=== PATIENT | female | born 1980 | race Caucasian/White ===

== ENCOUNTER 2017-07-15 11:50 | Emergency (ER) | payer OTHER ==
[2017-07-15 12:02] VITALS: BP 131/45; PULSE 89; TEMP 98.7; BMI 44.2
[2017-07-15] MEDS ORDERED: KETOROLAC TROMETHAMINE 30 MG/1 ML VIAL IM ONE (12:50)
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
[2017-07-15 13:26] LABS: HCG,QUALITATIVE URINE NEGATIVE
[2017-07-15] MEDS ORDERED: KETOROLAC TROMETHAMINE 30 MG/1 ML VIAL ONE (13:32)
[2017-07-15 13:36] LABS: URINE APPEARANCE SLCLOUDY; URINE BILIRUBIN NEGATIVE (<2.0 mg/dL); URINE BLOOD NEGATIVE (NEGATIVE); URINE COLOR YELLOW; URINE GLUCOSE (UA) NEGATIVE (NEGATIVE); URINE KETONE NEGATIVE (NEGATIVE); URINE LEUK ESTERASE NEGATIVE (NEGATIVE); URINE NITRITE POSITIVE (NEGATIVE); URINE PROTEIN NEGATIVE (NEGATIVE); URINE UROBILINOGEN NEGATIVE mg/dL (0.2-1.0)
[2017-07-15 13:46] LABS: EPI CELLS RARE /HPF (FEW); URINE BACTERIA MODERATE /hpf (NONE SEEN); URINE MUCUS FEW
== END 2017-07-15 14:30 | disposition home or self-care (01) ==
LOC: JERFT 11:50
PROC: 3E0233Z Introduction of Anti-inflammatory into Muscle, Percutaneous Approach (ICD-10-PCS; principal; 2017-07-15)
DX: S49.81XA Other specified injuries of right shoulder and upper arm, initial encounter (principal); S20.211A Contusion of right front wall of thorax, initial encounter; V44.5XXA Car driver injured in collision with heavy transport vehicle or bus in traffic accident, initial encounter; Y92.414 Local residential or business street as the place of occurrence of the external cause; Y93.89 Activity, other specified; Y99.8 Other external cause status
CPT/HCPCS: 71101-TC-RT-FY; 73030-TC-RT-FY; 81003; 81015; 84703; 99281-25

== ENCOUNTER 2019-12-24 04:51 | Emergency (ER) | payer OTHER ==
[2019-12-24] MEDS ORDERED: LACTATED RINGERS SOLUTION 1000 ML INFUS.BAG IV ONE (05:15)
[2019-12-24 05:22] VITALS: TEMP 98.9; BMI 43.4
[2019-12-24 05:44] LABS: BASO % 1.6 % (0-2.0); EOS % 6.7 % (0-4.5); HEMATOCRIT 34.9 % (32.4-45.2); HEMOGLOBIN 11.6 GM/dL (10.7-15.3); LYMPH % 31.9 % (8-40); MCH 26.5 pg (25.7-33.7); MCHC 33.2 g/dl (32.0-36.0); MEAN CELL VOLUME 79.9 fl (80-96); MEAN PLT VOLUME 8.8 fl (7.5-11.1); MONO % 8.1 % (3.8-10.2); NEUT % 51.7 % (42.8-82.8); PLATELET COUNT 228 K/MM3 (134-434); RBC 4.37 M/mm3 (3.60-5.2); RDW 16.7 % (11.6-15.6); WHITE BLOOD COUNT 5.4 K/mm3 (4.0-10.0)
[2019-12-24 06:03] LABS: CALCIUM 8.8 mg/dL (8.5-10.1)
[2019-12-24 06:04] LABS: ALBUMIN 3.1 g/dl (3.4-5.0); BLOOD UREA NITROGEN 9.2 mg/dL (7-18)
[2019-12-24 06:07] LABS: CREATININE 0.6 mg/dL (0.55-1.3)
[2019-12-24 06:09] LABS: BILIRUBIN,TOTAL 0.2 mg/dL (0.2-1); TOT PROT 6.5 g/dl (6.4-8.2)
[2019-12-24 08:59] LABS: EPI CELLS >36 /uL (0-25.1); HYALINE CASTS 1 /uL (0-3.1); URINE APPEARANCE TURBID; URINE BACTERIA 4108 /uL (0-1359); URINE BILIRUBIN NEGATIVE (NEGATIVE); URINE COLOR YELLOW; URINE GLUCOSE (UA) NEGATIVE (NEGATIVE); URINE KETONE NEGATIVE (NEGATIVE); URINE LEUK ESTERASE 2+ (NEGATIVE); URINE NITRITE NEGATIVE (NEGATIVE); URINE PROTEIN NEGATIVE (NEGATIVE); URINE RBC 60 /uL (0-23.9); URINE UROBILINOGEN 0.2 mg/dL (0.2-1.0); URINE WBC 150 /uL (0-25.8)
[2019-12-24 09:11] VITALS: BP 112/74; PULSE 75
[2019-12-24] MEDS ORDERED: CEPHALEXIN MONOHYDRATE 500 MG CAPSULE (UD) PO ONE (09:11)
[2019-12-24] MEDS ORDERED: CEPHALEXIN MONOHYDRATE 500 MG CAPSULE (UD) ONE (09:18)
== END 2019-12-24 09:27 | disposition home or self-care (01) ==
LOC: JER 04:51
DX: O26.851 Spotting complicating pregnancy, first trimester (principal); O23.41 Unspecified infection of urinary tract in pregnancy, first trimester
CPT/HCPCS: 36415; 76801-TC; 80053; 81003; 84702; 85025; 99284-25

== ENCOUNTER 2020-01-09 17:57 | Emergency (ER) | payer OTHER ==
[2020-01-09 18:09] VITALS: BMI 37.1
[2020-01-09 19:29] LABS: URINE APPEARANCE CLOUDY; URINE BILIRUBIN NEGATIVE (NEGATIVE); URINE COLOR YELLOW; URINE GLUCOSE (UA) NEGATIVE (NEGATIVE); URINE KETONE TRACE (NEGATIVE); URINE LEUK ESTERASE 2+ (NEGATIVE); URINE NITRITE NEGATIVE (NEGATIVE); URINE PROTEIN NEGATIVE (NEGATIVE); URINE UROBILINOGEN 0.2 mg/dL (0.2-1.0)
[2020-01-09 20:31] LABS: URINE WBC 404.7 /uL (0-25.8)
[2020-01-09 20:32] LABS: URINE BACTERIA 4759.8 /uL (0-1359)
[2020-01-09 20:41] VITALS: BP 110/82; PULSE 80; TEMP 98.3
== END 2020-01-09 21:21 | disposition home or self-care (01) ==
LOC: JER 17:57
DX: O26.899 Other specified pregnancy related conditions, unspecified trimester (principal); R10.84 Generalized abdominal pain; Z3A.16 16 weeks gestation of pregnancy
CPT/HCPCS: 76801-TC; 81003; 99284-25

== ENCOUNTER 2020-04-15 07:51 | Emergency (ER) | payer OTHER ==
[2020-04-15 08:08] VITALS: BMI 42.3
[2020-04-15] MEDS ORDERED: SODIUM CHLORIDE 0.9% 500 ML INFUS.BAG IV ONE (09:46)
[2020-04-15 10:26] LABS: BASO % 0.8 % (0-2.0); EOS % 7.8 % (0-4.5); HEMOGLOBIN 10.9 GM/dL (10.7-15.3); LYMPH % 23.1 % (8-40); MCH 27.6 pg (25.7-33.7); MEAN CELL VOLUME 81.4 fl (80-96); MEAN PLT VOLUME 9.4 fl (7.5-11.1); MONO % 6.8 % (3.8-10.2); NEUT % 61.5 % (42.8-82.8); PLATELET COUNT 290 K/MM3 (134-434); RBC 3.94 M/mm3 (3.60-5.2); WHITE BLOOD COUNT 7.8 K/mm3 (4.0-10.0)
[2020-04-15 10:45] VITALS: BP 117/54; PULSE 90; TEMP 98
[2020-04-15 11:00] LABS: URINE APPEARANCE Clear; URINE BILIRUBIN Negative (NEGATIVE); URINE COLOR Yellow; URINE GLUCOSE (UA) Negative (NEGATIVE); URINE KETONE Negative (NEGATIVE); URINE LEUK ESTERASE Negative (NEGATIVE); URINE NITRITE Negative (NEGATIVE); URINE PROTEIN Negative (NEGATIVE); URINE UROBILINOGEN 0.2 mg/dL (0.2-1.0)
[2020-04-15 11:03] LABS: POTASSIUM 4.3 mmol/L (3.5-5.1)
[2020-04-15 11:05] LABS: ALBUMIN 2.8 g/dl (3.4-5.0); BLOOD UREA NITROGEN 7.6 mg/dL (7-18)
[2020-04-15 11:08] LABS: CREATININE 0.6 mg/dL (0.55-1.3)
[2020-04-15 11:10] LABS: BILIRUBIN,TOTAL 0.3 mg/dL (0.2-1); TOT PROT 6.7 g/dl (6.4-8.2)
[2020-04-15 11:15] LABS: CALCIUM 9.7 mg/dL (8.5-10.1)
== END 2020-04-15 12:05 | disposition home or self-care (01) ==
LOC: JER 07:51
DX: R21 Rash and other nonspecific skin eruption (principal); Z3A.28 28 weeks gestation of pregnancy
CPT/HCPCS: 36415; 76815; 80053; 81003; 85025; 87086; 99284-25

== ENCOUNTER 2020-06-27 09:00 | Inpatient (IN) | payer OTHER ==
[2020-06-27] MEDS: ELECTROLYTE-148 SOLN 1,000 ML IV SCH (09:15)
[2020-06-27] MEDS ORDERED: AMPICILLIN SODIUM 250 MG VIAL IVPB ONE (10:30)
[2020-06-27] MEDS ORDERED: AMPICILLIN SODIUM 2 GM VIAL ONE (10:31)
[2020-06-27] MEDS ORDERED: CITRIC ACID/SODIUM CITRATE 30 ML UNIT-DOSE CUP PO ONE (10:35)
[2020-06-27 10:37] LABS: BASO % 0.6 % (0-2.0); EOS % 3.9 % (0-4.5); HEMATOCRIT 32.3 % (32.4-45.2); HEMOGLOBIN 10.9 GM/dL (10.7-15.3); LYMPH % 20.8 % (8-40); MCH 25.8 pg (25.7-33.7); MCHC 33.6 g/dl (32.0-36.0); MEAN CELL VOLUME 76.9 fl (80-96); MEAN PLT VOLUME 10.1 fl (7.5-11.1); MONO % 6.3 % (3.8-10.2); NEUT % 68.4 % (42.8-82.8); PLATELET COUNT 212 K/MM3 (134-434); RDW 16.3 % (11.6-15.6); WHITE BLOOD COUNT 7.6 K/mm3 (4.0-10.0)
[2020-06-27 10:42] LABS: INR 0.94 (0.83-1.09); PROTHROMBIN TIME (PATIENT) 11.6 SEC (9.7-13.0)
[2020-06-27 10:45] LABS: ACTIVATED PTT 26.2 SECONDS (25.2-36.5)
[2020-06-27 10:48] VITALS: BMI 43.5
[2020-06-27 10:54] LABS: CALCIUM 8.8 mg/dL (8.5-10.1)
[2020-06-27 10:55] LABS: BLOOD UREA NITROGEN 9.3 mg/dL (7-18)
[2020-06-27 10:58] LABS: CREATININE 0.6 mg/dL (0.55-1.3)
[2020-06-27] MEDS ORDERED: OXYTOCIN 20 UNITS in 0.9% NS 40 UNIT/2,000 ML INFUS.BAG IV ONE (11:14)
[2020-06-27] MEDS ORDERED: ONDANSETRON 4 MG/2 ML VIAL ONE (11:16)
[2020-06-27] MEDS ORDERED: DEXAMETHASONE SOD PHOSPHATE 4 MG/1 ML VIAL ONE (11:16)
[2020-06-27] MEDS ORDERED: morphine SULFATE/PF 0.5 MG/ML (2cc Syringe - QUVA) ONE (11:17)
[2020-06-27] MEDS ORDERED: KETOROLAC TROMETHAMINE 30 MG/1 ML VIAL ONE (12:19)
[2020-06-27] MEDS ORDERED: WITCH HAZEL 50% (TUCKS) 40 PAD/JAR PAD TP PRN (13:04)
[2020-06-27] MEDS ORDERED: BENZOCAINE 28 GM HEMORRHOIDAL OINTMENT TP PRN (13:04)
[2020-06-27] MEDS ORDERED: BENZOCAINE 20% 57 GM BOTTLE TP PRN (13:04)
[2020-06-27] MEDS ORDERED: diphenhydrAMINE HCL 25 MG CAPSULE (FP) PO PRN (13:04)
[2020-06-27] MEDS ORDERED: METHYLERGONOVINE MALEATE 0.2 MG/1 ML AMP IM PRN (13:04)
[2020-06-27] MEDS ORDERED: IBUPROFEN 800 MG/8 ML IJ IVPB PRN (13:04)
[2020-06-27 13:10] LABS: CORD HCO3 22.6 mmHg (20-29); CORD PCO2 54.9 mmHg (30-78); CORD pH 7.233 (7.14-7.44)
[2020-06-27 13:11] LABS: CORD BASE EXCESS -3.7 mmol/L (0-2); CORD HCO3 21.6 mmHg (20-29); CORD pH 7.35 (7.14-7.44)
[2020-06-27] MEDS ORDERED: OXYTOCIN 20 UNITS in 0.9% NS 20 UNIT/1,000 ML INFUS.BAG IV SCH (13:15)
[2020-06-27] MEDS ORDERED: ONDANSETRON 4 MG/2 ML VIAL IVPUSH PRN (15:07)
[2020-06-27] MEDS ORDERED: ACETAMINOPHEN 1000 MG/100 ML VIAL (NON FORMULARY) IVPB PRN (15:09)
[2020-06-27] MEDS: ACETAMINOPHEN 325 MG TABLET (FP) PO PRN (19:48)
[2020-06-28] MEDS: ACETAMINOPHEN 325 MG TABLET (FP) PO PRN ×3 (02:16→20:08)
[2020-06-28] MEDS: IBUPROFEN 600 MG TABLET (FP) PO PRN ×2 (06:00→10:30)
[2020-06-28 07:07] LABS: HEMATOCRIT 29.6 % (32.4-45.2); HEMOGLOBIN 9.7 GM/dL (10.7-15.3); MCH 25.9 pg (25.7-33.7); MCHC 32.7 g/dl (32.0-36.0); MEAN PLT VOLUME 11.2 fl (7.5-11.1); PLATELET COUNT 196 K/MM3 (134-434); RBC 3.75 M/mm3 (3.60-5.2); RDW 16.3 % (11.6-15.6); WHITE BLOOD COUNT 10.5 K/mm3 (4.0-10.0)
[2020-06-28] MEDS: SIMETHICONE 80 MG TAB.CHEW (FP) PO PRN ×2 (10:29→20:08)
[2020-06-28] MEDS: ELECTROLYTE-148 SOLN 1,000 ML IV SCH (11:54)
[2020-06-28] MEDS ORDERED: BISACODYL 10 MG SUPP.RECT PR PRN (13:04)
[2020-06-28] MEDS ORDERED: oxyCODONE HCL 5 MG TABLET PO PRN (13:04)
[2020-06-28] MEDS: oxyCODONE HCL 5 MG TABLET PO PRN (20:06)
[2020-06-29] MEDS: SIMETHICONE 80 MG TAB.CHEW (FP) PO PRN (04:44)
[2020-06-29] MEDS: oxyCODONE HCL 5 MG TABLET PO PRN ×2 (04:44→10:45)
[2020-06-29] MEDS: ACETAMINOPHEN 325 MG TABLET (FP) PO PRN ×2 (04:45→10:45)
[2020-06-29 10:27] VITALS: BP 123/72; PULSE 85; TEMP 98.9
[2020-06-29] MEDS ORDERED: SENNOSIDES/DOCUSATE COMBO (SENNA PLUS) TABLET (UD) PO PRN (22:00)
== END 2020-06-29 14:05 | disposition home or self-care (01) | DRG 540 ==
LOC: JLDR 09:00 → J3N 16:50
PROVIDERS: ADMIT Obstetrics & Gynecology; ATTEND Obstetrics & Gynecology
PROC: 10D00Z1 Extraction of Products of Conception, Low, Open Approach (ICD-10-PCS; principal; 2020-06-27)
DX: O34.211 Maternal care for low transverse scar from previous cesarean delivery (principal); O77.0 Labor and delivery complicated by meconium in amniotic fluid; Z3A.38 38 weeks gestation of pregnancy; Z37.0 Single live birth
CPT/HCPCS: 36415; 36600; 80048; 82803; 85025; 85027; 85610; 85730; 86780; 86850; 86900; 86901; 87081; 88307-TC; C9803; J0131; U0003; U0005